=== PATIENT | female | born 1940 | race Caucasian/White ===

== ENCOUNTER 2018-02-12 05:44 | Inpatient (IN) | payer OTHER ==
[2018-02-12] MEDS ORDERED: SODIUM CHLORIDE 1,000 ML IV SCH (05:45)
--- NOTE | 2018-02-12 05:54 | PDOC ---
History of Present Illness - General Chief Complaint: CVA/TIA Stated Complaint: CVA Time Seen by Provider: 02/12/18 05:45 - History of Present Illness Initial Comments: 02/12/18 06:14 The patient is a 77 year old female with a history of HTN who presents for evaluation of a possible stroke from home. The patient is accompanied by family who assist in providing the history. They note that the patient went to sleep at approximately 1 am this morning and awoke at 4 am complaining some some left sided weakness. They note progressively worsening symptoms with worsening left sided weakness, slurring speech, and urinary incontinence prompting her presentation to the ED at approximately 5:30 am. The patient otherwise denies headache, fevers, chills, SOB, chest pain, numbness, tingling, vision changes, or changes with bowel movements or pain with urination. tPA Exclusion checklist 3-4.5h - Time Elapsed Date last known well: 02/12/18 Time last known well: 01:00 Elaspsed time: 1 Day(s) and 5 Hour(s) and 30 Minutes - Thrombolytic Therapy Candidate Is patient eligible for thrombolytic therapy: No - Exclusion Criteria 3-4.5 hr SBP greater than 185 or DBP greater than 110mmHg despite tx: Yes - Ineligibility reason(s) Reasons No tPA given: Outside of window - delayed arrival, See reason(s) noted above NIH Stroke Scale - Last Known Well Date/Time & Onset Date Last Known Well: 02/12/18 Time Last Known Well: 01:00 - Initial Evaluation Level of consciousness: Alert Ask patient the month and their age: Answers both correctly Ask patient to open & close eyes; make fist and let go: Obeys both correctly Best gaze (horizontal eye movement): Normal Visual field testing: No visual field loss Facial paresis (Show teeth/raise eyebrows/close eyes tight): Partial paralysis ( total or near paralysis of lower face) Motor Function: Left Arm: Some effort against gravity Motor Function: Right Arm: Normal (extends arm 90 (or 45) degrees for 10 seconds without drift Motor Function: Left Leg: Some effort against gravity Motor Function: Right Leg: Normal (extends leg 30 degrees for 5 seconds without drift) Limb Ataxia: Present in one limb Sensory(Use pinprick test arms,legs,trunk,face/side to side): Normal Best language (Describe picture, name items, read sentences): No Aphasia Dysarthria (read several words): Mild to moderate slurring of words Extinction and Inattention: No abnormality - Total Score NIH Stroke Scale Score: 8 Past History - Past Medical History Allergies/Adverse Reactions: Allergies Allergy/AdvReac Type Severity Reaction Status Date / Time No Known Allergies Allergy Verified 02/12/18 05:52 Home Medications: Ambulatory Orders Enalapril Maleate [Vasotec] 10 mg PO DAILY 02/12/18 - Suicide/Smoking/Psychosocial Hx Smoking History: Never smoked Have you smoked in the past 12 months: No Information on smoking cessation initiated: No Hx Alcohol Use: No Drug/Substance Use Hx: No Review of Systems - Review of Systems Comments:: 02/12/18 06:17 Constitutional: No fevers, chills, fatigue, malaise HEENT: No Rhinorrhea, nasal congestion, visual changes Cardiovascular: No chest pain, syncope, palpitations, lightheadedness Respiratory: No Cough, SOB, Hemoptysis, Gastrointestinal: No Abdominal pain, Nausea, Vomiting, Constipation, Diarrhea, Melena Genitourinary: No Dysuria, Frequency, Urgency, Hesitancy, Hematuria, Flank pain Musculoskeletal: No Myalgia, arthralgia Skin: No rashes, itching, bruising, pallor Neurologic: Left sided weakness. Slurred Speech. No Headache, Dizziness, Numbness, or Tingling Psychiatric: No Hallucinations. No SI or HI *Physical Exam - Vital Signs Last Vital Signs Temp Pulse Resp BP Pulse Ox 97.7 F 82 202/101 H 99 02/12/18 05:44 02/12/18 05:44 02/12/18 05:44 02/12/18 05:44 - Physical Exam Comments: 02/12/18 06:17 General Appearance: Nourished. No Apparent Distress HEENT: EOMI, NARCISA. No Pharyngeal Erythema, Tonsillar Exudate, Tonsillar Erythema Neck: No Cervical Lymphadenopathy Respiratory/Chest: Lungs Clear, Normal Breath Sounds. No Crackles, Rales, Rhonchi, Wheezing Cardiovascular: Regular Rhythm, Regular Rate. No Murmur, Gallops, Rubs Gastrointestinal/Abdominal: Normal Bowel Sounds, Soft. No Guarding, Rebound, Tenderness Musculoskeletal: No CVA Tenderness Extremity: Normal Capillary Refill Integumentary: Normal Color, Dry, Warm Neurologic: Left sided lower facial droop noted on exam, Fully Oriented, Alert, Normal Mood/Affect, Normal Response, Motor Strength 2/5 on the left. Motor Strength 5/5 on the right. Normal Finger to Nose and Heel to Odom, No visual field deficits Moderate Sedation - Procedure Monitoring Vital Signs: Procedure Monitoring Vital Signs Temperature 97.7 F 02/12/18 05:44 Pulse Rate 82 02/12/18 05:44 Respiratory Rate Blood Pressure 202/101 H 02/12/18 05:44 O2 Sat by Pulse Oximetry (%) 99 02/12/18 05:44 ED Treatment Course - LABORATORY CBC & Chemistry Diagram: 02/12/18 05:50 02/12/18 05:50 - RADIOLOGY Radiology Studies Ordered: Category Date Time Status HEAD CT (STROKE) [CT] Stat CT Scan 02/12/18 05:44 Taken CHEST X-RAY PORTABLE* [RAD] Stat Radiology 02/12/18 05:45 Ordered Medical Decision Making - Medical Decision Making 02/12/18 06:22 The patient is a 77 year old female with a history of HTN who presents for evaluation of a possible stroke from home. Differential includes but is not limited to: CVA, TIA, UTI, Infectious, Metabolic Derangement. Given the patient 's presenting symptoms, we are concerned for a CVA however the patient does not qualify for TPA given she is outside the window and her elevated blood pressure. Head CT was obtained and did not demonstrate any acute infarct correlating with the a patient's symptoms as preliminarily read by our administrative assistant front desk radiologist. We will obtain a cbc, cmp, troponin, ua, lipid profile, ekg, chest plain film to evaluate further. We will obtain a consult with neurology given our concern for CVA and the patient will require admission for further work up and monitoring. 02/12/18 06:55 CBC, cmp, troponin, are unremarkable. Chest plain film is unremarkable. Patient signed out to the day team pending admission. *DC/Admit/Observation/Transfer Diagnosis at time of Disposition: Cerebrovascular accident (CVA) - Discharge Dispostion Condition at time of disposition: Guarded - Referrals - Patient Instructions - Post Discharge Activity
[2018-02-12 05:55] VITALS: BMI 18.3
[2018-02-12 05:58] LABS: BASO % 1.2 % (0-2.0); EOS % 0.9 % (0-4.5); HEMATOCRIT 44.8 % (32.4-45.2); HEMOGLOBIN 14.7 GM/dL (10.7-15.3); LYMPH % 21.7 % (8-40); MCH 29.1 pg (25.7-33.7); MCHC 32.7 g/dl (32.0-36.0); MEAN CELL VOLUME 88.9 fl (80-96); MEAN PLT VOLUME 10.4 fl (7.5-11.1); MONO % 8.6 % (3.8-10.2); NEUT % 67.6 % (42.8-82.8); PLATELET COUNT 174 K/MM3 (134-434); RBC 5.04 M/mm3 (3.60-5.2); RDW 14.5 % (11.6-15.6); WHITE BLOOD COUNT 6.4 K/mm3 (4.0-10.0)
[2018-02-12 06:11] LABS: INR 0.97 (0.83-1.09); PROTHROMBIN TIME (PATIENT) 11.4 SEC (9.7-13.0)
--- NOTE | 2018-02-12 06:11 | PDOC ---
Attending Attestation - Resident Resident Name: Steven Barbosa - ED Attending Attestation I have performed the following: I have examined & evaluated the patient, The case was reviewed & discussed with the resident, I agree w/resident's findings & plan, Exceptions are as noted - HPI HPI: 02/12/18 06:05 77 F with h/o HTN presents to ED with new onset L sided weakness and numbness, as well as slurred speech. Per family, pt went to bed at 1am tonight in her [facility]. Pt reportedly woke up at 3:30 with a sensation that her L hand was numb. When pt went to the bathroom, she was found to be draging her L leg. Family also notes that pt was slurring her speech. - Physicial Exam PE: 02/12/18 06:12 "GENERAL: Awake, alert, and fully oriented, in no acute distress. HEAD: No signs of trauma EYES: PERRLA, EOMI, sclera anicteric, conjunctiva clear ENT: Auricles normal inspection, hearing grossly normal, nares patent, oropharynx clear without exudates. Moist mucosa NECK: Nontender, no stepoffs, Normal ROM, supple, no lymphadenopathy, JVD, or masses LUNGS: Breath sounds equal, clear to auscultation bilaterally. No wheezes, and no crackles HEART: Regular rate and rhythm, normal S1 and S2, no murmurs, rubs or gallops ABDOMEN: Soft, nontender, normoactive bowel sounds. No guarding, no rebound. No masses EXTREMITIES: Normal range of motion, no edema. No clubbing or cyanosis. No cords, erythema, or tenderness NEUROLOGICAL: + L facial droop, + L sided weakness and numbness, RUE and RLE with 5/5 strength and sensation SKIN: Warm, Dry, normal turgor, no rashes or lesions noted. - Critical Care Time Total Critical Care Time: 60 Critical Care Statement: The care of this patient involved high complexity decision making to prevent further life threatening deterioration of the patient 's condition and/or to evaluate & treat vital organ system(s) failure or risk of failure. - Medical Decision Making 02/12/18 06:13 77 F with h/o HTN presenting to ED with L sided weakness. Pt's LKN was 1am, putting her outside of window for tPA. NIHSS 9. 02/12/18 06:15 CT with no bleed Dr. Valle, neuro legal receptionist, consulted, awaiting callback 02/12/18 06:37 Labs wnl Still awaiting callback Will order MRI and admit to hospitalist NIH Stroke Scale - Last Known Well Date/Time & Onset Date Last Known Well: 02/12/18 Time Last Known Well: 01:00 - Initial Evaluation Level of consciousness: Alert Ask patient the month and their age: Answers both correctly Ask patient to open & close eyes; make fist and let go: Obeys both correctly Best gaze (horizontal eye movement): Normal Visual field testing: No visual field loss Facial paresis (Show teeth/raise eyebrows/close eyes tight): Partial paralysis ( total or near paralysis of lower face) Motor Function: Left Arm: Some effort against gravity Motor Function: Right Arm: Normal (extends arm 90 (or 45) degrees for 10 seconds without drift Motor Function: Left Leg: Some effort against gravity Motor Function: Right Leg: Normal (extends leg 30 degrees for 5 seconds without drift) Limb Ataxia: Present in one limb Sensory(Use pinprick test arms,legs,trunk,face/side to side): Normal Best language (Describe picture, name items, read sentences): No Aphasia Dysarthria (read several words): Mild to moderate slurring of words Extinction and Inattention: No abnormality - Total Score NIH Stroke Scale Score: 8
[2018-02-12 06:23] LABS: ALBUMIN 4.2 g/dl (3.4-5.0); ALK PHOS 94 U/L (45-117); ANION GAP 7 MMOL/L (8-16); BILIRUBIN,TOTAL 0.4 mg/dL (0.2-1); BLOOD UREA NITROGEN 21 mg/dL (7-18); CALCIUM 9.2 mg/dL (8.5-10.1); CHLORIDE 107 mmol/L (98-107); CHOLESTEROL 261 mg/dL (50-200); CO2 24 mmol/L (21-32); CREATININE 1.2 mg/dL (0.55-1.3); GLUCOSE,RANDOM 110 mg/dL (74-106); HDL CHOLESTEROL 81 mg/dL (40-60); POTASSIUM 4.2 mmol/L (3.5-5.1); SGOT/AST 31 U/L (15-37); SGPT/ALT 17 U/L (13-61); SODIUM 139 mmol/L (136-145); TOT PROT 8.2 g/dl (6.4-8.2); TRIGLYCERIDES 98 mg/dL (0-150)
--- NOTE | 2018-02-12 07:26 | PDOC ---
*Physical Exam - Vital Signs Last Vital Signs Temp Pulse Resp BP Pulse Ox 98.9 F 80 25 H 219/136 H 100 02/12/18 06:11 02/12/18 06:11 02/12/18 06:11 02/12/18 06:11 02/12/18 06:11 ED Treatment Course - LABORATORY CBC & Chemistry Diagram: 02/12/18 05:50 02/12/18 05:50 - ADDITIONAL ORDERS Additional order review: Laboratory Results 02/12/18 02/12/18 05:50 05:50 PT with INR 11.40 INR 0.97 Sodium 139 Potassium 4.2 Chloride 107 Carbon Dioxide 24 Anion Gap 7 L BUN 21 H Creatinine 1.2 Creat Clearance w eGFR 43.80 Random Glucose 110 H Calcium 9.2 Total Bilirubin 0.4 AST 31 ALT 17 Alkaline Phosphatase 94 Creatine Kinase 153 Troponin I < 0.02 Total Protein 8.2 Albumin 4.2 Triglycerides 98 Cholesterol 261 H Total LDL Cholesterol 148 H HDL Cholesterol 81 H 02/12/18 05:50 RBC 5.04 MCV 88.9 MCHC 32.7 RDW 14.5 MPV 10.4 Neutrophils % 67.6 Lymphocytes % 21.7 Monocytes % 8.6 Eosinophils % 0.9 Basophils % 1.2 Medical Decision Making - Medical Decision Making Pt was signed out to me by resident Dr. Barbosa, who explained the presentation , ED course, any pending results, and needed interventions. Pending results include admission and UA. Pt is currently stable/guarded and is lying comfortably. Pending admission and consult call from Dr. Valle. Consult orders have been placed. 02/12/18 07:22 No call received from Dr. Valle at 8:00. Dr. Payne at bedside to see pt. Consult placed for Dr. Lira for neurology. Pt awaiting bed upstairs. Repeat BP 160/97. 02/12/18 08:00 B/l LE doppler order placed. Pt had recent flight from [place] and cramps in legs. 02/12/18 08:01 *DC/Admit/Observation/Transfer Diagnosis at time of Disposition: Cerebrovascular accident (CVA) Qualifiers: CVA mechanism: unspecified Qualified Code(s): I63.9 - Cerebral infarction, unspecified - Discharge Dispostion Condition at time of disposition: Guarded Decision to Admit order: Yes - Referrals - Patient Instructions - Post Discharge Activity
--- NOTE | 2018-02-12 07:53 | PDOC ---
*Physical Exam - Vital Signs Last Vital Signs Temp Pulse Resp BP Pulse Ox 98.9 F 68 16 160/97 100 02/12/18 06:11 02/12/18 07:38 02/12/18 07:38 02/12/18 07:38 02/12/18 07:38 - Physical Exam General Appearance: Yes: Nourished Neck: positive: Trachea midline Respiratory/Chest: positive: Lungs Clear, Normal Breath Sounds Cardiovascular: positive: Regular Rhythm, Regular Rate, S1, S2 Musculoskeletal: positive: Normal Inspection Extremity: positive: Normal Capillary Refill Neurologic: positive: Fully Oriented, Alert, Normal Mood/Affect, Other (left arm no movement against gravity, left leg moves, not against gravity, right uper and lower normal strength. right facial droop.) Heart Score/ECG Review #1 General ECG Interpretation: Sinus Rhythm, Normal Rate (76), Normal Intervals, No acute ischemic changes ED Treatment Course - LABORATORY CBC & Chemistry Diagram: 02/12/18 05:50 02/12/18 05:50 - ADDITIONAL ORDERS Additional order review: Laboratory Results 02/12/18 02/12/18 02/12/18 05:50 05:50 05:50 PT with INR 11.40 INR 0.97 Sodium 139 Potassium 4.2 Chloride 107 Carbon Dioxide 24 Anion Gap 7 L BUN 21 H Creatinine 1.2 Creat Clearance w eGFR 43.80 Random Glucose 110 H Calcium 9.2 Total Bilirubin 0.4 AST 31 ALT 17 Alkaline Phosphatase 94 Creatine Kinase 153 Creatine Kinase Index 1.3 CK-MB (CK-2) 2.0 Troponin I < 0.02 Total Protein 8.2 Albumin 4.2 Triglycerides 98 Cholesterol 261 H Total LDL Cholesterol 148 H HDL Cholesterol 81 H Blood Type B POSITIVE Antibody Screen Negative 02/12/18 05:50 RBC 5.04 MCV 88.9 MCHC 32.7 RDW 14.5 MPV 10.4 Neutrophils % 67.6 Lymphocytes % 21.7 Monocytes % 8.6 Eosinophils % 0.9 Basophils % 1.2 Medical Decision Making - Medical Decision Making 02/12/18 07:51 77 yo F h/o DM, htn here with sudden onset left sided weakness and slurred speech. here with family states last normal 1 am , awoke at 3 am to go to bathroom was dragging her left leg, noted facial droop. no headache. no other complaints. 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 EKG NSR 76 bpm bp improved was 219/ 100 initially, now 160/ 97. d/w dr garsia, will be admitted. updated family at bedside. 02/12/18 07:54 *DC/Admit/Observation/Transfer Diagnosis at time of Disposition: Cerebrovascular accident (CVA) Qualifiers: CVA mechanism: unspecified Qualified Code(s): I63.9 - Cerebral infarction, unspecified - Discharge Dispostion Condition at time of disposition: Guarded - Referrals - Patient Instructions - Post Discharge Activity
[2018-02-12] MEDS ORDERED: ACETAMINOPHEN 325 MG TABLET (FP) PO PRN (08:06)
[2018-02-12] MEDS ORDERED: LABETALOL HCL 5 MG/1 ML (100MG/20 ML VIAL) IVPUSH PRN (08:10)
[2018-02-12] MEDS ORDERED: ASPIRIN 325 MG TABLET PO ONE (08:16)
[2018-02-12] MEDS ORDERED: ASPIRIN 325 MG TABLET ONE (08:17)
--- NOTE | 2018-02-12 08:25 | HP ---
Admitting History and Physical - Primary Care Physician PCP: None - Admission Chief Complaint: I feel weak History of Present Illness: Ms Rafa Kirkland is a very pleasant 77 year old female who comes in with concern for stroke. She recently flew from [place] 2 days prior for the of her son in law. Last night she was "not feeling well" but did not tell anybody. She went to bed at 1:30 and woke up at 3:30 with weakness. She says it affected her entire left side. She could not move her L arm and L leg. She had to use the bathroom and was being assisted, and they noted that she was unable to use her L side to walk. They also noted L sided facial droop and slight slurring of speech. Because of this they brought her in. Aside from this she complains of minimal swelling in both legs and spasmodic pain in her left leg. She denies fevers, chills, lightheadedness, dizziness, passing out, chest pain or pressure , palpitations, shortness of breath, coughing, abdominal pain, nausea, vomiting , diarrhea, constipation, difficulty or pain on urination, or loss of sensation. She notes tingling with the weakness on her left side. Currently the symptoms are still present. Patient is [place] speaking, family members provide translation. Of note patient is supposed to be taking enalapril, however has not been compliant with it recently. History Source: Patient Limitations to Obtaining History: No Limitations - Past Medical History Cardiovascular: Yes: HTN - Past Surgical History Past Surgical History: Yes: Cataract Removal - Smoking History Smoking history: Never smoked Have you smoked in the past 12 months: No - Alcohol/Substance Use Hx Alcohol Use: No History of Substance Use: reports: None - Social History Usual Living Arrangement: Yes: Alone ADL: Independent History of Recent Travel: Yes Home Medications - Allergies Allergies/Adverse Reactions: Allergies Allergy/AdvReac Type Severity Reaction Status Date / Time No Known Allergies Allergy Verified 02/12/18 05:52 - Home Medications Home Medications: Ambulatory Orders Enalapril Maleate [Vasotec] 10 mg PO DAILY 02/12/18 Family Disease History - Family Disease History Family Disease History: Other: Brother (acute CVA), Son (sleep apnea), Daughter (rheumatoid arthritis) Review of Systems Findings/Remarks: Full review of systems obtained, as per HPI and otherwise negative. Physical Examination Vital Signs: Vital Signs Temperature 37.2 C 02/12/18 06:11 Pulse Rate 68 02/12/18 07:38 Respiratory Rate 16 02/12/18 07:38 Blood Pressure 160/97 02/12/18 07:38 O2 Sat by Pulse Oximetry (%) 100 02/12/18 07:38 Constitutional: Yes: No Distress, Calm, Thin Eyes: Yes: Conjunctiva Clear, EOM Intact, PERRL HENT: Yes: Atraumatic, Normocephalic, Other (L mouth droop) Cardiovascular: Yes: Regular Rate and Rhythm. No: Gallop, Murmur, Rub Respiratory: Yes: Regular, CTA Bilaterally. No: Rales, Rhonchi, Wheezes Gastrointestinal: Yes: Normal Bowel Sounds, Soft. No: Distention, Tenderness Extremities: Yes: WNL Edema: No Neurological: Yes: Facial Droop (L side), Weakness ...Motor Strength: LUE (1/5), LLE (1/5) Labs: CBC, BMP 02/12/18 05:50 02/12/18 05:50 Problem List - Problems (1) Cerebrovascular accident (CVA) Assessment/Plan: -symptoms c/w acute CVA -however unusual that has L sided facial droop with left deficit -still acute CVA until proven otherwise -aspirin given in the ED -will continue ASA 81mg daily since naive to this -blood pressure control with enalapril and prn labetalol -npo currently -PT and ST consult -ECHO and carotid ultrasound -MRI -neurology consult Code(s): I63.9 - CEREBRAL INFARCTION, UNSPECIFIED Qualifiers: CVA mechanism: unspecified Qualified Code(s): I63.9 - Cerebral infarction, unspecified (2) HTN (hypertension) Assessment/Plan: -uncontrolled, but not taking enalapril as prescribed -will restart enalapril -labetalol prn -blood pressure control Code(s): I10 - ESSENTIAL (PRIMARY) HYPERTENSION (3) HLD (hyperlipidemia) Assessment/Plan: -CT showing old stroke -LDL should be below 70, not at target -will start lipitor 20mg, but will d/w neurology if should be full strength Code(s): E78.5 - HYPERLIPIDEMIA, UNSPECIFIED (4) Edema Assessment/Plan: -minimal edema with spasm of LLE -will check venous duplex dopplers for DVT -will check d-dimer as well -no signs of PE at the time so will hold on CT scan PE protocol until above tests result Code(s): R60.9 - EDEMA, UNSPECIFIED Qualifiers: Edema type: localized Qualified Code(s): R60.0 - Localized edema
[2018-02-12 08:28] LABS: URINE APPEARANCE CLEAR; URINE BILIRUBIN NEGATIVE (<2.0 mg/dL); URINE COLOR STRAW; URINE GLUCOSE (UA) NEGATIVE (NEGATIVE); URINE KETONE NEGATIVE (NEGATIVE); URINE LEUK ESTERASE NEGATIVE (NEGATIVE); URINE NITRITE NEGATIVE (NEGATIVE); URINE PROTEIN 2+ (NEGATIVE); URINE UROBILINOGEN NEGATIVE mg/dL (0.2-1.0)
[2018-02-12 08:40] LABS: URINE BACTERIA RARE /hpf (NONE SEEN)
[2018-02-12] MEDS ORDERED: ENALAPRIL MALEATE 5 MG TABLET (FP) ONE (09:05)
[2018-02-12] MEDS ORDERED: ENOXAPARIN NA (PORCINE) 40 MG/0.4 ML DISP.SYRIN SQ ONE (09:06)
[2018-02-12] MEDS: ENALAPRIL MALEATE 10 MG TABLET (FP) PO SCH (09:06)
[2018-02-12] MEDS: ENOXAPARIN NA (PORCINE) 40 MG/0.4 ML DISP.SYRIN SQ SCH (09:06)
--- NOTE | 2018-02-12 09:48 | CONSULT ---
Consult - text type - Consultation Consultation Note: Neurology History of Present Illness: 77 year old female who resented with reported weakness and slurred speech. Per notes, she recently flew from [place] 2 days prior for the of her son in law. Night prior to admission she was "not feeling well" but did not tell anybody. She went to bed at 1:30 and woke up at 3:30 with weakness. She stated it affected her entire left side. She could not move her L arm and L leg. She had to use the bathroom and was being assisted, and they noted that she was unable to use her L side to walk. They also noted L sided facial droop and slight slurring of speech. Because of this they brought her in. Aside from this she complains of minimal swelling in both legs and spasmodic pain in her left leg. She denied fevers, chills, lightheadedness, dizziness, passing out, chest pain or pressure, palpitations, shortness of breath, coughing, abdominal pain, nausea, vomiting, diarrhea, constipation, difficulty or pain on urination , or loss of sensation. She notes tingling with the weakness on her left side. CT had completed an emergency department did not show any acute changes. She was admitted for stroke workup and I was asked by Dr. Payne to consult. agree with stroke workup and MRI brain ordered, continue deficits on exam during my evaluation this morning in the ER. According to her son at bedside, she does not take daily aspirin at home. History Source: Patient Limitations to Obtaining History: No Limitations - Past Medical History Cardiovascular: Yes: HTN - Past Surgical History Past Surgical History: Yes: Cataract Removal - Smoking History Smoking history: Never smoked Have you smoked in the past 12 months: No - Alcohol/Substance Use Hx Alcohol Use: No History of Substance Use: reports: None - Social History Usual Living Arrangement: Yes: Alone ADL: Independent History of Recent Travel: Yes Home Medications - Allergies Allergies/Adverse Reactions: Allergies Allergy/AdvReac Type Severity Reaction Status Date / Time No Known Allergies Allergy Verified 02/12/18 05:52 - Home Medications Home Medications: Ambulatory Orders Enalapril Maleate [Vasotec] 10 mg PO DAILY 02/12/18 Family Disease History - Family Disease History Family Disease History: Other: Brother (acute CVA), Son (sleep apnea), Daughter (rheumatoid arthritis) Review of Systems Findings/Remarks: Full review of systems obtained, as per HPI and otherwise negative. Physical Examination Vital Signs: Vital Signs Temperature 37.2 C 02/12/18 06:11 Pulse Rate 68 02/12/18 07:38 Respiratory Rate 16 02/12/18 07:38 Blood Pressure 160/97 02/12/18 07:38 O2 Sat by Pulse Oximetry (%) 100 02/12/18 07:38 Constitutional: Yes: No Distress, Calm, Thin Eyes: Yes: Conjunctiva Clear, EOM Intact, PERRL HENT: Yes: Atraumatic, Normocephalic, Other (L mouth droop) Cardiovascular: Yes: Regular Rate and Rhythm. No: Gallop, Murmur, Rub Respiratory: Yes: Regular, CTA Bilaterally. No: Rales, Rhonchi, Wheezes Gastrointestinal: Yes: Normal Bowel Sounds, Soft. No: Distention, Tenderness Extremities: Yes: WNL Edema: No Neurological: left facial droop,slurred speech, LUE 2/5, LLE 1/5, RUE and RLE 5- /5, sensory intact, finger to nose intact CBCD WBC 6.4 K/mm3 (4.0-10.0) 02/12/18 05:50 RBC 5.04 M/mm3 (3.60-5.2) 02/12/18 05:50 Hgb 14.7 GM/dL (10.7-15.3) 02/12/18 05:50 Hct 44.8 % (32.4-45.2) 02/12/18 05:50 MCV 88.9 fl (80-96) 02/12/18 05:50 MCHC 32.7 g/dl (32.0-36.0) 02/12/18 05:50 RDW 14.5 % (11.6-15.6) 02/12/18 05:50 Plt Count 174 K/MM3 (134-434) 02/12/18 05:50 MPV 10.4 fl (7.5-11.1) 02/12/18 05:50 CMP Sodium 139 mmol/L (136-145) 02/12/18 05:50 Potassium 4.2 mmol/L (3.5-5.1) 02/12/18 05:50 Chloride 107 mmol/L (98-107) 02/12/18 05:50 Carbon Dioxide 24 mmol/L (21-32) 02/12/18 05:50 Anion Gap 7 MMOL/L (8-16) L 02/12/18 05:50 BUN 21 mg/dL (7-18) H 02/12/18 05:50 Creatinine 1.2 mg/dL (0.55-1.3) 02/12/18 05:50 Creat Clearance w eGFR 43.80 (>60) 02/12/18 05:50 Random Glucose 110 mg/dL (74-106) H 02/12/18 05:50 Calcium 9.2 mg/dL (8.5-10.1) 02/12/18 05:50 Total Bilirubin 0.4 mg/dL (0.2-1) 02/12/18 05:50 AST 31 U/L (15-37) 02/12/18 05:50 ALT 17 U/L (13-61) 02/12/18 05:50 Alkaline Phosphatase 94 U/L (45-117) 02/12/18 05:50 Total Protein 8.2 g/dl (6.4-8.2) 02/12/18 05:50 Albumin 4.2 g/dl (3.4-5.0) 02/12/18 05:50 CARDIAC ENZYMES Creatine Kinase 153 IU/L (26-192) 02/12/18 05:50 Troponin I < 0.02 ng/ml (0.00-0.05) 02/12/18 05:50 CT head reviewed Plan 77 year old female who resented with reported weakness and slurred speech. Per notes, she recently flew from [place] 2 days prior for the of her son in law. Night prior to admission she was "not feeling well" but did not tell anybody. She went to bed at 1:30 and woke up at 3:30 with weakness. She stated it affected her entire left side. She could not move her L arm and L leg. CT had completed an emergency department did not show any acute changes. She was admitted for stroke workup and I was asked by Dr. Payne to consult. Agree with stroke workup and MRI brain ordered carotid Dopplers Echo Initiate aspirin 81 mg daily, compliance recommended Monitor blood pressure, allow up to 160/90 for now speech and swallow eval LDL 148, increased Lipitor to 40 mg from 20 mg physical therapy as tolerated Fall precautions DVT prophylaxis recommended
[2018-02-12] MEDS ORDERED: ASPIRIN COATED 81 MG TABLET.EC PO SCH (10:00)
--- NOTE | 2018-02-12 11:30 | CONSULT ---
Admitting History and Physical - Primary Care Physician PCP: cAe Payne - Admission History of Present Illness: Per EMR: 77 year old female who resented with reported weakness and slurred speech. Per notes, she recently flew from [place] 2 days prior for the of her son in law. Night prior to admission she was "not feeling well" but did not tell anybody. She went to bed at 1:30 and woke up at 3:30 with weakness. She stated it affected her entire left side. She could not move her L arm and L leg. She had to use the bathroom and was being assisted, and they noted that she was unable to use her L side to walk. They also noted L sided facial droop and slight slurring of speech. Because of this they brought her in. CT head (-) acute stroke Pending MRI History Source: Patient, Family Member (Pt's son present, who served and financial secretary. He was tearful, overwhelmed by many recent deaths in family. Nursing and SW aware.), Medical Record - Past Medical History Cardiovascular: Yes: HTN - Past Surgical History Past Surgical History: Yes: Cataract Removal - Smoking History Smoking history: Never smoked Have you smoked in the past 12 months: No - Alcohol/Substance Use Hx Alcohol Use: No History of Substance Use: reports: None - Social History ADL: Independent History of Recent Travel: Yes History - Admission Reason For Visit: CVA - Diagnostics X-ray: Report Reviewed CT Scan: Report Reviewed MRI: Pending - General Mental Status: Alert and Oriented, Awake and Alert, Able to Follow Commands Attention: Intact Ability to Follow Directions: Excellent Head/Neck Control: WFL - Hearing Hearing: Functional Speech Evaluation - Communication Primary Language: TELUGU Communication: Yes: Within Normal Limits, Dysarthria Oral Expression Ability: Yes: No Impairment - Speech Production Able to Make Needs Known: Yes: Mildly Impaired - Speech Characteristics Voice Loudness: Mildly Soft/Quiet Voice Pitch: Yes: Normal Voice Phonatory-based Quality: Yes: Normal Speech Clarity: < 100% Nasal Resonance: Normal Articulation: Yes: Imprecise (mild) - Language/Auditory Comprehension Follows: Yes: 2 Stage Simple Commands Observation: Able to respond to yes/no queries: Yes, Yes/No Confusion: No, Comprehends Conversational Speech: Yes - Language/Verbal Expression Able to Respond to Simple Queries: Yes: WNL Able to Communicate Wants and Needs: Yes: WNL Functional Communication Status: Yes: WNL - Memory/Perception custodial Memory: Yes: WNL Short Term Memory: Yes: WNL - Swallow Evaluation/Bedside Assessment Current Nutritional Intake: NPO Oral Secretions: Yes: WFL Dentition: Yes: Adequate Facial Symmetry at Rest: Facial Droop Left Facial Symmetry on Retraction: Facial Droop Left Sensation: Reduced Left Jaw Position: Closed at Rest Pucker Lips: Droops Left Smile: Droops Left Lingual Movement: Symmetric Lingual Speed of Movement: Reduced Lingual Movement Strgth Against Opposition: Reduced Lingual Movement Characteristics: Normal Velopharyngeal Movement: Normal Laryngeal Movement: Labored,delay initiation Rate of Intake: WFL Bolus Size: WFL Labial Seal: WFL Chewing: Impaired (labored. Reports reduced sensation on left makes chewing more difficult.) Oral Prep Time: Increased A-P Transit: WFL Pocketing: Present Left Timing of Swallow: Delayed Coughing/Throat Clear: Yes (occasional) Change in Voice: No Recommendations - Speech Evaluation, Impression/Plan Impression: Mild dysarthria/dysarthria/ Reduced sensation on left reported with increased aspiration risk. - Disposition Discharge to: To be Determined - Dysphagia Impressions/Plan Swallowing Skills: Impaired Dysphagia Impressions: Mild Impairment *Silent aspiration: cannot be R/O at bedside Dysphagia Treatment Plan: Small Bites, Chin Tuck/Down, Facilitative Feeding, 1/ 2 tsp. at a time, Elevate HOB during feed Recommendations: Modified Barium Swallow (if cough, congestion, fever) - Recommendations Diet Consistency: Dysphagia Minced Medication Administration: Crushed with applesauce Liquids: [place] Thick
--- NOTE | 2018-02-12 15:30 | ECHO ---
Name: MAICOL KNOX Exam:Adult Echocardiogram Study Date: 02/12/2018 12:58 PM Age: 77 yrs Reason For Study: ACUTE CVA Height: 62 in Weight: 100 lb BSA: 1.4 m2 MMode/2D Measurements & Calculations IVSd: 1.0 cm Ao root diam: 2.4 cm LVIDd: 3.9 cm ACS: 1.9 cm LVIDs: 3.0 cm LVPWd: 1.00 cm EDV(Teich): 65.7 ml LVOT diam: 1.9 cm ESV(Teich): 36.0 ml Doppler Measurements & Calculations MV V2 max: 644.1 cm/sec TV V2 max: 109.9 cm/sec MV max P.0 mmHg TV max P.4 mmHg MV V2 mean: 455.9 cm/sec MV mean P.1 mmHg MV V2 VTI: 203.9 cm PI end-d vinayak: 132.5 cm/sec Med Peak E' Vinayak: 4.2 cm/sec Lat Peak E' Vinayak: 7.2 cm/sec Left Ventricle The left ventricle is normal in size. Left ventricular systolic function is normal. LVEF = 60%. E/A r eversal consistent with but not diagnostic of poor LV compliance. Right Ventricle The right ventricle is normal in size and function. Atria Normal left and right atrial size and function. Mitral Valve There is mild mitral annular calcification. Posterior leaflet is calcified and less mobile. The abbey l regurgitant jet is eccentrically directed. Eccetric mitral regurgitation, likely moderate severity. Tricuspid Valve The tricuspid valve is not well visualized, but is grossly normal. There is trace tricuspid regurgita tion. Right ventricular systolic pressure is normal. Aortic Valve There is mild to moderate aortic sclerosis.;. Trace aortic regurgitation. Pulmonic Valve The pulmonic valve is not well seen, but is grossly normal. Great Vessels The aortic root is normal size. Pericardium/Pleura There is no pericardial effusion. Interpretation Summary The left ventricle is normal in size. Left ventricular systolic function is normal. LVEF = 60%. The right ventricle is normal in size and function. Normal left and right atrial size and function. There is mild to moderate aortic sclerosis.; Trace aortic regurgitation. There is mild mitral annular calcification. Posterior leaflet is calcified and less mobile. Eccetric mitral regurgitation, likely moderate severity. MD Aleksandra Almanza 02/12/2018 03:30 PM
--- NOTE | 2018-02-12 16:25 | EKG ---
Test Reason : Blood Pressure : / mmHG Vent. Rate : 076 BPM Atrial Rate : 076 BPM P-R Int : 302 ms QRS Dur : 074 ms QT Int : 370 ms P-R-T Axes : 109 024 022 degrees QTc Int : 416 ms SINUS RHYTHM WITH 1ST DEGREE A-V BLOCK OTHERWISE NORMAL ECG Confirmed by MD ÁNGEL, KEKE ([id number]) on 02/12/2018 4:24:50 PM Referred By: Confirmed By:KEKE NEAL MD
[2018-02-12] MEDS ORDERED: ATORVASTATIN CA 20 MG TABLET (FP) PO SCH (22:00)
[2018-02-12] MEDS: ATORVASTATIN CA 40 MG TABLET (FP) PO SCH (22:01)
[2018-02-13 06:51] LABS: BASO % 0.4 % (0-2.0); EOS % 0.5 % (0-4.5); HEMATOCRIT 39.3 % (32.4-45.2); HEMOGLOBIN 13.8 GM/dL (10.7-15.3); LYMPH % 21.4 % (8-40); MCH 30.8 pg (25.7-33.7); MCHC 35.1 g/dl (32.0-36.0); MEAN CELL VOLUME 87.7 fl (80-96); MEAN PLT VOLUME 10.1 fl (7.5-11.1); MONO % 9.6 % (3.8-10.2); NEUT % 68.1 % (42.8-82.8); PLATELET COUNT 163 K/MM3 (134-434); RBC 4.48 M/mm3 (3.60-5.2); RDW 14.2 % (11.6-15.6); WHITE BLOOD COUNT 6.6 K/mm3 (4.0-10.0)
[2018-02-13 07:41] LABS: ALBUMIN 3.5 g/dl (3.4-5.0); ALK PHOS 62 U/L (45-117); ANION GAP 10 MMOL/L (8-16); BILIRUBIN,TOTAL 0.8 mg/dL (0.2-1); BLOOD UREA NITROGEN 16 mg/dL (7-18); CALCIUM 8.8 mg/dL (8.5-10.1); CHLORIDE 106 mmol/L (98-107); CO2 23 mmol/L (21-32); CREATININE 1.1 mg/dL (0.55-1.3); GLUCOSE,RANDOM 96 mg/dL (74-106); MAGNESIUM 2.1 mg/dL (1.8-2.4); POTASSIUM 4.1 mmol/L (3.5-5.1); SGOT/AST 27 U/L (15-37); SGPT/ALT 15 U/L (13-61); SODIUM 139 mmol/L (136-145)
--- NOTE | 2018-02-13 09:28 | PN ---
Progress Note (short form) - Note Progress Note: Neurology History of Present Illness: 77 year old female who resented with reported weakness and slurred speech. Per notes, she recently flew from [place] 2 days prior for the of her son in law. Night prior to admission she was "not feeling well" but did not tell anybody. She went to bed at 1:30 and woke up at 3:30 with weakness. She stated it affected her entire left side. She could not move her L arm and L leg. She had to use the bathroom and was being assisted, and they noted that she was unable to use her L side to walk. They also noted L sided facial droop and slight slurring of speech. Because of this they brought her in. Aside from this she complains of minimal swelling in both legs and spasmodic pain in her left leg. She denied fevers, chills, lightheadedness, dizziness, passing out, chest pain or pressure, palpitations, shortness of breath, coughing, abdominal pain, nausea, vomiting, diarrhea, constipation, difficulty or pain on urination , or loss of sensation. She notes tingling with the weakness on her left side. CT had completed an emergency department did not show any acute changes. MRI brain completed overnight and demonstrated R basal ganglia/ghosh radiata infarct. Patient put on ASA 81mg. Also on statin. Carotid reviewed and without HD significant stenosis but mild athero. Normal LV function and EF. Reviewed and discussed with patient. LUE and LLE improving strength both subjectively and objectively. Countinued encouragement provided. Active Medications Acetaminophen (Tylenol -) 650 mg PO Q4H PRN PRN Reason: FEVER Aspirin (Ecotrin -) 81 mg PO DAILY [facility] Atorvastatin Calcium (Lipitor -) 40 mg PO HS [facility] Last Admin: 02/12/18 22:01 Dose: 40 mg Enalapril Maleate (Vasotec -) 10 mg PO DAILY [facility] Last Admin: 02/12/18 09:06 Dose: 10 mg Enoxaparin Sodium (Lovenox -) 40 mg SQ DAILY [facility] Last Admin: 02/12/18 09:06 Dose: 40 mg Labetalol HCl (Normodyne Injection -) 10 mg IVPUSH Q6H PRN PRN Reason: HYPERTENSION Last Admin: 02/12/18 15:28 Dose: 10 mg Physical Examination Vital Signs: Vital Signs Period Temp Pulse Resp BP Sys/Mckenna Pulse Ox Last 24 Hr 97.6 F-98.4 F 61-78 18-20 118-192/64-113 98-100 Constitutional: Yes: No Distress, Calm, Thin Eyes: Yes: Conjunctiva Clear, EOM Intact, PERRL HENT: Yes: Atraumatic, Normocephalic, Other (L mouth droop) Cardiovascular: Yes: Regular Rate and Rhythm. No: Gallop, Murmur, Rub Respiratory: Yes: Regular, CTA Bilaterally. No: Rales, Rhonchi, Wheezes Gastrointestinal: Yes: Normal Bowel Sounds, Soft. No: Distention, Tenderness Extremities: Yes: WNL Edema: No Neurological: left facial droop,slurred speech, LUE 3+/5, LLE 3-/5, RUE and RLE 5-/5, sensory intact, finger to nose intact CBCD WBC 6.6 K/mm3 (4.0-10.0) 02/13/18 05:30 RBC 4.48 M/mm3 (3.60-5.2) 02/13/18 05:30 Hgb 13.8 GM/dL (10.7-15.3) 02/13/18 05:30 Hct 39.3 % (32.4-45.2) 02/13/18 05:30 MCV 87.7 fl (80-96) 02/13/18 05:30 MCHC 35.1 g/dl (32.0-36.0) 02/13/18 05:30 RDW 14.2 % (11.6-15.6) 02/13/18 05:30 Plt Count 163 K/MM3 (134-434) 02/13/18 05:30 MPV 10.1 fl (7.5-11.1) 02/13/18 05:30 CMP Sodium 139 mmol/L (136-145) 02/13/18 06:00 Potassium 4.1 mmol/L (3.5-5.1) 02/13/18 06:00 Chloride 106 mmol/L (98-107) 02/13/18 06:00 Carbon Dioxide 23 mmol/L (21-32) 02/13/18 06:00 Anion Gap 10 MMOL/L (8-16) 02/13/18 06:00 BUN 16 mg/dL (7-18) 02/13/18 06:00 Creatinine 1.1 mg/dL (0.55-1.3) 02/13/18 06:00 Creat Clearance w eGFR 48.42 (>60) 02/13/18 06:00 Random Glucose 96 mg/dL (74-106) 02/13/18 06:00 Calcium 8.8 mg/dL (8.5-10.1) 02/13/18 06:00 Total Bilirubin 0.8 mg/dL (0.2-1) 02/13/18 06:00 AST 27 U/L (15-37) 02/13/18 06:00 ALT 15 U/L (13-61) 02/13/18 06:00 Alkaline Phosphatase 62 U/L (45-117) 02/13/18 06:00 Total Protein 7.0 g/dl (6.4-8.2) 02/13/18 06:00 Albumin 3.5 g/dl (3.4-5.0) 02/13/18 06:00 CARDIAC ENZYMES Creatine Kinase 268 IU/L (26-192) H 02/12/18 21:40 Troponin I 0.02 ng/ml (0.00-0.05) 02/12/18 21:40 CT head reviewed MRI brain reviewed Carotid doppler reviewed Echo reviewed Plan 77 year old female who resented with reported weakness and slurred speech. Per notes, she recently flew from [place] 2 days prior for the of her son in law. Night prior to admission she was "not feeling well" but did not tell anybody. She went to bed at 1:30 and woke up at 3:30 with weakness. She stated it affected her entire left side. She could not move her L arm and L leg. CT had completed an emergency department did not show any acute changes. She was admitted for stroke workup and I was asked by Dr. Payne to consult. MRI brain as above carotid Dopplers as above, no HD stenosis Echo as above Continue aspirin 81 mg daily, compliance recommended Monitor blood pressure, allow up to 140/90 for now, <130/80 as outpatient speech and swallow eval LDL 148, increased Lipitor to 40 mg from 20 mg physical therapy as tolerated, improving strength Fall precautions DVT prophylaxis recommended
[2018-02-13] MEDS: ENALAPRIL MALEATE 10 MG TABLET (FP) PO SCH (10:39)
[2018-02-13] MEDS: ASPIRIN COATED 81 MG TABLET.EC PO SCH (10:40)
[2018-02-13] MEDS: ENOXAPARIN NA (PORCINE) 40 MG/0.4 ML DISP.SYRIN SQ SCH (10:40)
--- NOTE | 2018-02-13 11:39 | PN ---
Progress Note, MEDICAL DIRECTOR - Note Progress Note: Selected Entries 02/12/18 02/12/18 02/12/18 05:44 06:11 10:24 Diet Tolerated Supper Temperature 97.7 F 98.9 F 98.2 F 02/12/18 02/12/18 02/12/18 12:00 15:23 17:00 Diet Tolerated Supper Temperature 98.2 F 98.4 F 97.6 F 02/12/18 02/12/18 02/12/18 19:00 21:50 22:00 Diet Tolerated Poor Supper 25% Temperature 98.3 F 98.3 F 02/13/18 02/13/18 02/13/18 01:24 05:00 06:00 Diet Tolerated Supper Temperature 98.1 F 97.9 F 97.9 F 02/13/18 10:36 Diet Tolerated Supper Temperature 97 F L Laboratory Tests 02/13/18 05:30 WBC 6.6 Pt on dys minced diet, nectar thick liquids. Looking much stronger. Left facial improving. Still with responsive cough on 3 oz water test, c/w aspiration. Consider MBS before d/c regarding appropriate diet to minimize aspiration risk.
--- NOTE | 2018-02-13 14:14 | PN ---
Teaching Attending Note Name of Resident: Clarisa Reid ATTENDING PHYSICIAN STATEMENT I saw and evaluated the patient. I reviewed the resident's note and discussed the case with the resident. I agree with the resident's findings and plan as documented. SUBJECTIVE: Patient has no complaints. OBJECTIVE: Vital Signs Period Temp Pulse Resp BP Sys/Mckenna Pulse Ox Last 24 Hr 97 F-98.4 F 61-74 20-20 118-192/64-113 98-98 HEART: S1S2, RRR LUNGS: Clear ABDOMEN: Soft, non-tender, non-distended, normal BS EXTREMITIES: No edema NEUROLOGICAL: Alert, oriented, mild left facial droop, strength 4/5 in LUE/LLE and 5/5 in RUE/RLE Laboratory Results - last 24 hr 02/12/18 02/12/18 02/13/18 16:30 21:40 05:30 WBC 6.6 RBC 4.48 Hgb 13.8 Hct 39.3 MCV 87.7 MCH 30.8 MCHC 35.1 RDW 14.2 Plt Count 163 MPV 10.1 Absolute Neuts (auto) 4.5 Neutrophils % 68.1 Lymphocytes % 21.4 Monocytes % 9.6 Eosinophils % 0.5 Basophils % 0.4 Nucleated RBC % 0 Sodium Potassium Chloride Carbon Dioxide Anion Gap BUN Creatinine Creat Clearance w eGFR Random Glucose Calcium Phosphorus Magnesium Total Bilirubin AST ALT Alkaline Phosphatase Creatine Kinase 257 H 268 H Creatine Kinase Index 1.7 1.6 CK-MB (CK-2) 4.5 H 4.4 H Troponin I 0.02 0.02 Total Protein Albumin 02/13/18 06:00 WBC RBC Hgb Hct MCV MCH MCHC RDW Plt Count MPV Absolute Neuts (auto) Neutrophils % Lymphocytes % Monocytes % Eosinophils % Basophils % Nucleated RBC % Sodium 139 Potassium 4.1 Chloride 106 Carbon Dioxide 23 Anion Gap 10 BUN 16 Creatinine 1.1 Creat Clearance w eGFR 48.42 Random Glucose 96 Calcium 8.8 Phosphorus 4.0 Magnesium 2.1 Total Bilirubin 0.8 AST 27 ALT 15 Alkaline Phosphatase 62 Creatine Kinase Creatine Kinase Index CK-MB (CK-2) Troponin I Total Protein 7.0 Albumin 3.5 Current Medications Generic Name Dose Route Start Last Admin Trade Name Freq PRN Reason Stop Dose Admin Acetaminophen 650 mg 02/12/18 08:06 Tylenol - PO Q4H PRN FEVER Aspirin 81 mg 02/13/18 10:00 02/13/18 10:40 Ecotrin - PO 81 mg DAILY [facility] Administration Atorvastatin Calcium 40 mg 02/12/18 22:00 02/12/18 22:01 Lipitor - PO 40 mg HS [facility] Administration Enalapril Maleate 10 mg 02/12/18 10:00 02/13/18 10:39 Vasotec - PO 10 mg DAILY [facility] Administration Enoxaparin Sodium 40 mg 02/12/18 10:00 02/13/18 10:40 Lovenox - SQ 40 mg DAILY [facility] Administration Labetalol HCl 10 mg 02/12/18 08:10 02/12/18 15:28 Normodyne Injection - IVPUSH 10 mg Q6H PRN Administration HYPERTENSION ASSESSMENT AND PLAN: This is a 77 year old woman with a history of HTN who presented to the ED with left-sided weakness, left facial droop, and slurred speech. 1. 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 HTN - Continue Vasotec - Allow permissive hypertension for now 3. Hyperlipidemia - Continue Lipitor 4. Leg edema - Improved - Venous dopplers negative for DVT in both legs
--- NOTE | 2018-02-13 16:37 | PN ---
Physical Exam: SUBJECTIVE: Patient seen and examined at bed side today. No complaints. Feels better. States still has weakness on the left side. Denies headache, numbness, tingling, any focal neurological deficits, chest pain, sob, cough, palpitation, abdominal pain,nausea or vomiting. No acute events overnight. No events in tele monitor. OBJECTIVE: Vital Signs Period Temp Pulse Resp BP Sys/Mckenna Pulse Ox Last 24 Hr 97 F-98.3 F 61-69 20-20 118-192/64-87 98-98 GENERAL: Elderly female, sitting in a chair comfortably, is awake, alert, and fully oriented, in no acute distress. HEAD: Normal with no signs of trauma. EYES: EOM intact, no pallor or icterus. ENT: Ears normal, moist mucous membranes. NECK:Supple. LUNGS: Breath sounds equal, clear to auscultation bilaterally, no wheezes, no crackles, no accessory muscle use. HEART: Regular rate and rhythm, S1, S2 without murmur. ABDOMEN: Soft, nontender, no organomegaly. EXTREMITIES: 2+ pulses, warm, well-perfused, no edema. NEUROLOGICAL: Left sided facial droop. Power 5/5 in right upper and lower ext; 4 /5 in left upper and lower ext. Cranial nerves II through XII grossly intact. Normal speech, gait not observed. PSYCH: Normal mood, normal affect. SKIN: Warm, dry, normal turgor, no rashes or lesions noted Laboratory Results - last 24 hr 02/12/18 02/12/18 02/13/18 16:30 21:40 05:30 WBC 6.6 RBC 4.48 Hgb 13.8 Hct 39.3 MCV 87.7 MCH 30.8 MCHC 35.1 RDW 14.2 Plt Count 163 MPV 10.1 Absolute Neuts (auto) 4.5 Neutrophils % 68.1 Lymphocytes % 21.4 Monocytes % 9.6 Eosinophils % 0.5 Basophils % 0.4 Nucleated RBC % 0 Sodium Potassium Chloride Carbon Dioxide Anion Gap BUN Creatinine Creat Clearance w eGFR Random Glucose Calcium Phosphorus Magnesium Total Bilirubin AST ALT Alkaline Phosphatase Creatine Kinase 257 H 268 H Creatine Kinase Index 1.7 1.6 CK-MB (CK-2) 4.5 H 4.4 H Troponin I 0.02 0.02 Total Protein Albumin 02/13/18 06:00 WBC RBC Hgb Hct MCV MCH MCHC RDW Plt Count MPV Absolute Neuts (auto) Neutrophils % Lymphocytes % Monocytes % Eosinophils % Basophils % Nucleated RBC % Sodium 139 Potassium 4.1 Chloride 106 Carbon Dioxide 23 Anion Gap 10 BUN 16 Creatinine 1.1 Creat Clearance w eGFR 48.42 Random Glucose 96 Calcium 8.8 Phosphorus 4.0 Magnesium 2.1 Total Bilirubin 0.8 AST 27 ALT 15 Alkaline Phosphatase 62 Creatine Kinase Creatine Kinase Index CK-MB (CK-2) Troponin I Total Protein 7.0 Albumin 3.5 Active Medications Generic Name Dose Route Start Last Admin Trade Name Freq PRN Reason Stop Dose Admin Acetaminophen 650 mg 02/12/18 08:06 Tylenol - PO Q4H PRN FEVER Aspirin 81 mg 02/13/18 10:00 02/13/18 10:40 Ecotrin - PO 81 mg DAILY RICH Administration Atorvastatin Calcium 40 mg 02/12/18 22:00 02/12/18 22:01 Lipitor - PO 40 mg HS RICH Administration Enalapril Maleate 10 mg 02/12/18 10:00 02/13/18 10:39 Vasotec - PO 10 mg DAILY RICH Administration Enoxaparin Sodium 40 mg 02/12/18 10:00 02/13/18 10:40 Lovenox - SQ 40 mg DAILY RICH Administration Labetalol HCl 10 mg 02/12/18 08:10 02/12/18 15:28 Normodyne Injection - IVPUSH 10 mg Q6H PRN Administration HYPERTENSION Brain MRI 02/12: Acute right basal ganglia/frontal coronal radiata infarct, small chronic left basal ganglia infarct. Carotid dopplers show mild atherosclerotic disease with no hemodynamically significant stenosis Echo shows normal LV, LVEF 60%, normal RV, trace AR, moderate eccentric MR Vascular study shows NO DVT ASSESSMENT/PLAN: Patient is a 77 year old female presented to the ED with the chief complaints of left sided weakness. # Acute right basal ganglia infarct Admitted in Tele. Continuous cardiac monitoring. no events noted in tele monitor. Carotid doppler and ECHO as mentioned above. Still has left sided weakness but no focal neurological deficits. Continue Aspirin 81mg PO Daily; Atorvastatin 40mg Physical therapy daily: walked 20 ft today Modified barium swallow done today, recommendations to follow. On Soft diet regular soft, thin liquids, no straws. # Hypertension-controlled Continue Enalapril 10mg PO daily Labetolol 10 mg IV Q6H PRN Maintain BP < 140 mmHg # FEN Not on any fluids, can tolerate PO Electrolytes WNL Soft diet # Prophylaxis For DVT: On Lovenox 40 mg sq daily For GI: not indicated # Code Status: Full Code # Dispo: d/c planning. Needs a SNF placement. mend worker on board. Illness, Investigation and Plan of care explained to the patient. She verbalized understanding. Case seen and discussed with Dr. Park. Problem List - Problems (1) Cerebrovascular accident (CVA) Code(s): I63.9 - CEREBRAL INFARCTION, UNSPECIFIED Qualifiers: CVA mechanism: unspecified Qualified Code(s): I63.9 - Cerebral infarction, unspecified (2) Edema Code(s): R60.9 - EDEMA, UNSPECIFIED Qualifiers: Edema type: localized Qualified Code(s): R60.0 - Localized edema (3) HLD (hyperlipidemia) Code(s): E78.5 - HYPERLIPIDEMIA, UNSPECIFIED (4) HTN (hypertension) Code(s): I10 - ESSENTIAL (PRIMARY) HYPERTENSION Visit type - Emergency Visit Emergency Visit: Yes ED Registration Date: 02/12/18 Care time: The patient presented to the Emergency Department on the above date and was hospitalized for further evaluation of their emergent condition. - New Patient This patient is new to me today: Yes Date on this admission: 02/13/18 - Critical Care Critical Care patient: No - Discharge Referral Referred to [facility] Med P.C.: No
[2018-02-13] MEDS: ATORVASTATIN CA 40 MG TABLET (FP) PO SCH (21:18)
--- NOTE | 2018-02-14 08:43 | PN ---
Progress Note (short form) - Note Progress Note: Neurology History of Present Illness: 77 year old female who resented with reported weakness and slurred speech. Per notes, she recently flew from [place] 2 days prior for the of her son in law. Night prior to admission she was "not feeling well" but did not tell anybody. She went to bed at 1:30 and woke up at 3:30 with weakness. She stated it affected her entire left side. She could not move her L arm and L leg. She had to use the bathroom and was being assisted, and they noted that she was unable to use her L side to walk. They also noted L sided facial droop and slight slurring of speech. Because of this they brought her in. CT had completed an emergency department did not show any acute changes. MRI brain completed overnight and demonstrated R basal ganglia/ghosh radiata infarct. Patient put on ASA 81mg. Also on statin. Carotid reviewed and without HD significant stenosis but mild athero. Normal LV function and EF. Reviewed and discussed with patient. LUE and LLE improved significantly in strength both subjectively and objectively. Continued encouragement provided again today. She seems to be getting close to baseline. Speech also seems more intelligible. No new complaints or deficits noted. Physical Examination Vital Signs: Vital Signs Period Temp Pulse Resp BP Sys/Mckenna Pulse Ox Last 24 Hr 97 F-98.4 F 57-67 20-20 90-142/45-75 98-98 Constitutional: Yes: No Distress, Calm, Thin Eyes: Yes: Conjunctiva Clear, EOM Intact, PERRL HENT: Yes: Atraumatic, Normocephalic, Other (L mouth droop) Cardiovascular: Yes: Regular Rate and Rhythm. No: Gallop, Murmur, Rub Respiratory: Yes: Regular, CTA Bilaterally. No: Rales, Rhonchi, Wheezes Gastrointestinal: Yes: Normal Bowel Sounds, Soft. No: Distention, Tenderness Extremities: Yes: WNL Edema: No Neurological: left facial droop,slurred speech, LUE 4+/5, LLE 4-/5, RUE and RLE 5-/5, sensory intact, finger to nose intact CBCD WBC 6.6 K/mm3 (4.0-10.0) 02/13/18 05:30 RBC 4.48 M/mm3 (3.60-5.2) 02/13/18 05:30 Hgb 13.8 GM/dL (10.7-15.3) 02/13/18 05:30 Hct 39.3 % (32.4-45.2) 02/13/18 05:30 MCV 87.7 fl (80-96) 02/13/18 05:30 MCHC 35.1 g/dl (32.0-36.0) 02/13/18 05:30 RDW 14.2 % (11.6-15.6) 02/13/18 05:30 Plt Count 163 K/MM3 (134-434) 02/13/18 05:30 MPV 10.1 fl (7.5-11.1) 02/13/18 05:30 CMP Sodium 139 mmol/L (136-145) 02/13/18 06:00 Potassium 4.1 mmol/L (3.5-5.1) 02/13/18 06:00 Chloride 106 mmol/L (98-107) 02/13/18 06:00 Carbon Dioxide 23 mmol/L (21-32) 02/13/18 06:00 Anion Gap 10 MMOL/L (8-16) 02/13/18 06:00 BUN 16 mg/dL (7-18) 02/13/18 06:00 Creatinine 1.1 mg/dL (0.55-1.3) 02/13/18 06:00 Creat Clearance w eGFR 48.42 (>60) 02/13/18 06:00 Random Glucose 96 mg/dL (74-106) 02/13/18 06:00 Calcium 8.8 mg/dL (8.5-10.1) 02/13/18 06:00 Total Bilirubin 0.8 mg/dL (0.2-1) 02/13/18 06:00 AST 27 U/L (15-37) 02/13/18 06:00 ALT 15 U/L (13-61) 02/13/18 06:00 Alkaline Phosphatase 62 U/L (45-117) 02/13/18 06:00 Total Protein 7.0 g/dl (6.4-8.2) 02/13/18 06:00 Albumin 3.5 g/dl (3.4-5.0) 02/13/18 06:00 CARDIAC ENZYMES Creatine Kinase 268 IU/L (26-192) H 02/12/18 21:40 Troponin I 0.02 ng/ml (0.00-0.05) 02/12/18 21:40 CT head reviewed MRI brain reviewed Carotid doppler reviewed Echo reviewed Plan 77 year old female who resented with reported weakness and slurred speech. Per notes, she recently flew from [place] 2 days prior for the of her son in law. Night prior to admission she was "not feeling well" but did not tell anybody. She went to bed at 1:30 and woke up at 3:30 with weakness. She stated it affected her entire left side. She could not move her L arm and L leg. CT had completed an emergency department did not show any acute changes. She was admitted for stroke workup and I was asked by Dr. Payne to consult. MRI brain as above carotid Dopplers as above, no HD stenosis Echo as above Continue aspirin 81 mg daily, compliance recommended Monitor blood pressure, allow up to 140/90 for now, <130/80 as outpatient speech and swallow eval LDL 148, increased Lipitor to 40 mg from 20 mg physical therapy as tolerated, improving strength, rehab may be preferred though home with outpatient PT may be feasible depending on therapist evaluation of continued improvement Fall precautions DVT prophylaxis recommended
[2018-02-14] MEDS: ENALAPRIL MALEATE 10 MG TABLET (FP) PO SCH (10:12)
[2018-02-14] MEDS: ENOXAPARIN NA (PORCINE) 40 MG/0.4 ML DISP.SYRIN SQ SCH (10:13)
[2018-02-14] MEDS: ASPIRIN COATED 81 MG TABLET.EC PO SCH (10:13)
--- NOTE | 2018-02-14 11:30 | PN ---
Progress Note, GROUP DIRECTOR - Note Progress Note: MBS reviewed with pt and staff. Diet upgraded with good tolerance noted. Left facial weakness much improved, suspecting approximating baseline. Selected Entries 02/13/18 02/13/18 02/13/18 01:24 05:00 06:00 Breakfast Lunch Supper Temperature 98.1 F 97.9 F 97.9 F 02/13/18 02/13/18 02/13/18 10:36 12:22 15:41 Breakfast 50% Lunch 50% Supper Temperature 97 F L 97.5 F L 02/13/18 02/13/18 02/13/18 17:00 19:09 23:00 Breakfast Lunch Supper 50% Temperature 97.7 F 98.4 F 02/14/18 02/14/18 01:23 05:00 Breakfast Lunch Supper Temperature 98.2 F 98 F Laboratory Tests 02/13/18 05:30 WBC 6.6 Monitor pulmonary and nutritional status.
--- NOTE | 2018-02-14 11:55 | PN ---
Teaching Attending Note Name of Resident: Clarisa Reid ATTENDING PHYSICIAN STATEMENT I saw and evaluated the patient. I reviewed the resident's note and discussed the case with the resident. I agree with the resident's findings and plan as documented. SUBJECTIVE: Patient has no complaints. OBJECTIVE: Vital Signs Period Temp Pulse Resp BP Sys/Mckenna Pulse Ox Last 24 Hr 97.5 F-98.4 F 57-67 20-20 90-134/45-75 98 HEART: S1S2, RRR LUNGS: Clear ABDOMEN: Soft, non-tender, non-distended, normal BS EXTREMITIES: No edema NEUROLOGICAL: Alert, oriented, left facial droop improving, strength 4/5 in LUE/ LLE and 5/5 in RUE/RLE Current Medications Generic Name Dose Route Start Last Admin Trade Name Freq PRN Reason Stop Dose Admin Acetaminophen 650 mg 02/12/18 08:06 Tylenol - PO Q4H PRN FEVER Aspirin 81 mg 02/13/18 10:00 02/14/18 10:13 Ecotrin - PO 81 mg DAILY RICH Administration Atorvastatin Calcium 40 mg 02/12/18 22:00 02/13/18 21:18 Lipitor - PO 40 mg HS RICH Administration Enalapril Maleate 10 mg 02/12/18 10:00 02/14/18 10:12 Vasotec - PO 10 mg DAILY RICH Administration Enoxaparin Sodium 40 mg 02/12/18 10:00 02/14/18 10:13 Lovenox - SQ 40 mg DAILY RICH Administration Labetalol HCl 10 mg 02/12/18 08:10 02/12/18 15:28 Normodyne Injection - IVPUSH 10 mg Q6H PRN Administration HYPERTENSION ASSESSMENT AND PLAN: This is a 77 year old woman with a history of HTN who presented to the ED with left-sided weakness, left facial droop, and slurred speech. 1. Acute basal ganglia/frontal ghosh radiata ischemic CVA - Carotid dopplers show mild atherosclerotic disease with no hemodynamically significant stenosis - Echo shows normal LV, LVEF 60%, normal RV, trace AR, moderate eccentric MR - Modified barium swallow shows no aspiration or penetration with slight stasis in vallecula after swallow reflex - Current recommendation is for soft regular food, thin liquids, single sips and no straws - Continue aspirin, Lipitor - Walked 40 feet with 2 wheel walker with PT today - Continue PT - Will likely need subacute rehab 2. HTN - Continue Vasotec 3. Hyperlipidemia - Continue Lipitor 4. Leg edema - Improved - Venous dopplers negative for DVT in both legs
--- NOTE | 2018-02-14 15:17 | PN ---
Physical Exam: SUBJECTIVE: Patient seen and examined at bed side this morning. Sitting in a chair. No complaints. Denies headache, numbness, tingling, any focal neurological deficits, chest pain, sob, cough, palpitation, abdominal pain, nausea or vomiting. No acute events overnight. No events in tele monitor. OBJECTIVE: Vital Signs Period Temp Pulse Resp BP Sys/Mckenna Pulse Ox Last 24 Hr 97.5 F-98.7 F 57-67 20-20 90-154/45-75 98-100 GENERAL: Elderly female, sitting in a chair comfortably, is awake, alert, and fully oriented, in no acute distress. HEAD: Normal with no signs of trauma. EYES: EOM intact, no pallor or icterus. ENT: Ears normal, moist mucous membranes. NECK:Supple. LUNGS: Breath sounds equal, clear to auscultation bilaterally, no wheezes, no crackles, no accessory muscle use. HEART: Regular rate and rhythm, S1, S2 without murmur. ABDOMEN: Soft, nontender, no organomegaly. EXTREMITIES: 2+ pulses, warm, well-perfused, no edema. NEUROLOGICAL: Left sided facial droop. Power 5/5 in right upper and lower ext; 4 /5 in left upper and lower ext. Cranial nerves II through XII grossly intact. Normal speech, gait not observed. PSYCH: Normal mood, normal affect. SKIN: Warm, dry, normal turgor, no rashes or lesions noted Active Medications Generic Name Dose Route Start Last Admin Trade Name Freq PRN Reason Stop Dose Admin Acetaminophen 650 mg 02/12/18 08:06 Tylenol - PO Q4H PRN FEVER Aspirin 81 mg 02/13/18 10:00 02/14/18 10:13 Ecotrin - PO 81 mg DAILY RICH Administration Atorvastatin Calcium 40 mg 02/12/18 22:00 02/13/18 21:18 Lipitor - PO 40 mg HS RICH Administration Enalapril Maleate 10 mg 02/12/18 10:00 02/14/18 10:12 Vasotec - PO 10 mg DAILY RICH Administration Enoxaparin Sodium 40 mg 02/12/18 10:00 02/14/18 10:13 Lovenox - SQ 40 mg DAILY RICH Administration Labetalol HCl 10 mg 02/12/18 08:10 02/12/18 15:28 Normodyne Injection - IVPUSH 10 mg Q6H PRN Administration HYPERTENSION ASSESSMENT/PLAN: Brain MRI 02/12: Acute right basal ganglia/frontal coronal radiata infarct, small chronic left basal ganglia infarct. Carotid dopplers show mild atherosclerotic disease with no hemodynamically significant stenosis Echo shows normal LV, LVEF 60%, normal RV, trace AR, moderate eccentric MR Vascular study shows NO DVT ASSESSMENT/PLAN: Patient is a 77 year old female presented to the ED with the chief complaints of left sided weakness. # Acute right basal ganglia infarct Admitted in Tele. Continuous cardiac monitoring. no events noted in tele monitor. Left sided weakness- improving Continue Aspirin 81mg PO Daily; Atorvastatin 40mg Physical therapy daily: walked 40 ft today (walked 20 ft yesterday). Needs SNF placement, patient and family agrees. On Soft diet regular soft, thin liquids, no straws. # Hypertension-controlled Continue Enalapril 10mg PO daily Labetolol 10 mg IV Q6H PRN Maintain BP < 140 mmHg # FEN Not on any fluids, can tolerate PO Electrolytes WNL Soft diet # Prophylaxis For DVT: On Lovenox 40 mg sq daily For GI: not indicated # Code Status: Full Code # Dispo: D/C planning. Needs a SNF placement. machine operator hop worker on board. Illness, Investigation and Plan of care explained to the patient. She verbalized understanding. Case seen and discussed with Dr. Park. Problem List - Problems (1) Cerebrovascular accident (CVA) Code(s): I63.9 - CEREBRAL INFARCTION, UNSPECIFIED Qualifiers: CVA mechanism: unspecified Qualified Code(s): I63.9 - Cerebral infarction, unspecified (2) Edema Code(s): R60.9 - EDEMA, UNSPECIFIED Qualifiers: Edema type: localized Qualified Code(s): R60.0 - Localized edema (3) HLD (hyperlipidemia) Code(s): E78.5 - HYPERLIPIDEMIA, UNSPECIFIED (4) HTN (hypertension) Code(s): I10 - ESSENTIAL (PRIMARY) HYPERTENSION Visit type - Emergency Visit Emergency Visit: Yes ED Registration Date: 02/12/18 Care time: The patient presented to the Emergency Department on the above date and was hospitalized for further evaluation of their emergent condition. - New Patient This patient is new to me today: No - Critical Care Critical Care patient: No - Discharge Referral Referred to [facility] Med P.C.: No
[2018-02-14] MEDS: ATORVASTATIN CA 40 MG TABLET (FP) PO SCH (21:23)
[2018-02-15 07:22] LABS: HEMATOCRIT 39.8 % (32.4-45.2); HEMOGLOBIN 13.5 GM/dL (10.7-15.3); MCH 30.2 pg (25.7-33.7); MEAN PLT VOLUME 10.1 fl (7.5-11.1); PLATELET COUNT 165 K/MM3 (134-434); RBC 4.47 M/mm3 (3.60-5.2); RDW 14.2 % (11.6-15.6); WHITE BLOOD COUNT 5.2 K/mm3 (4.0-10.0)
[2018-02-15 07:49] LABS: ANION GAP 6 MMOL/L (8-16); BLOOD UREA NITROGEN 30 mg/dL (7-18); CHLORIDE 106 mmol/L (98-107); CO2 26 mmol/L (21-32); CREATININE 1.2 mg/dL (0.55-1.3); GLUCOSE,RANDOM 85 mg/dL (74-106); POTASSIUM 4.5 mmol/L (3.5-5.1); SODIUM 138 mmol/L (136-145)
--- NOTE | 2018-02-15 09:05 | PN ---
Progress Note (short form) - Note Progress Note: Neurology History of Present Illness: 77 year old female who resented with reported weakness and slurred speech. Per notes, she recently flew from [place] 2 days prior for the of her son in law. Night prior to admission she was "not feeling well" but did not tell anybody. She went to bed at 1:30 and woke up at 3:30 with weakness. She stated it affected her entire left side. She could not move her L arm and L leg. She had to use the bathroom and was being assisted, and they noted that she was unable to use her L side to walk. They also noted L sided facial droop and slight slurring of speech. Because of this they brought her in. CT had completed an emergency department did not show any acute changes. MRI brain completed overnight and demonstrated R basal ganglia/ghosh radiata infarct. Patient put on ASA 81mg. Also on statin. Carotid reviewed and without HD significant stenosis but mild athero. Normal LV function and EF. Reviewed and discussed with patient. LUE and LLE improved significantly in strength both subjectively and objectively, reportedly walking 40 feet. Continued encouragement provided again today. She seems to be getting close to baseline. Speech also seems more intelligible. May be going to SNF per notes. Dispo being planned. Encouraged by her progress, may have good recovery with continued therapy. Active Medications Acetaminophen (Tylenol -) 650 mg PO Q4H PRN PRN Reason: FEVER Aspirin (Ecotrin -) 81 mg PO DAILY RICH Last Admin: 02/14/18 10:13 Dose: 81 mg Atorvastatin Calcium (Lipitor -) 40 mg PO HS RICH Last Admin: 02/14/18 21:23 Dose: 40 mg Enalapril Maleate (Vasotec -) 10 mg PO DAILY RICH Last Admin: 02/14/18 10:12 Dose: 10 mg Enoxaparin Sodium (Lovenox -) 40 mg SQ DAILY RICH Last Admin: 02/14/18 10:13 Dose: 40 mg Labetalol HCl (Normodyne Injection -) 10 mg IVPUSH Q6H PRN PRN Reason: HYPERTENSION Last Admin: 02/12/18 15:28 Dose: 10 mg Physical Examination Vital Signs: Vital Signs Period Temp Pulse Resp BP Sys/Mckenna Pulse Ox Last 24 Hr 97 F-98.4 F 57-67 20-20 90-142/45-75 98-98 Constitutional: Yes: No Distress, Calm, Thin Eyes: Yes: Conjunctiva Clear, EOM Intact, PERRL HENT: Yes: Atraumatic, Normocephalic, Other (L mouth droop) Cardiovascular: Yes: Regular Rate and Rhythm. No: Gallop, Murmur, Rub Respiratory: Yes: Regular, CTA Bilaterally. No: Rales, Rhonchi, Wheezes Gastrointestinal: Yes: Normal Bowel Sounds, Soft. No: Distention, Tenderness Extremities: Yes: WNL Edema: No Neurological: left facial droop,slurred speech, LUE 4+/5, LLE 4-/5, RUE and RLE 5-/5, sensory intact, finger to nose intact CBCD WBC 5.2 K/mm3 (4.0-10.0) 02/15/18 06:28 RBC 4.47 M/mm3 (3.60-5.2) 02/15/18 06:28 Hgb 13.5 GM/dL (10.7-15.3) 02/15/18 06:28 Hct 39.8 % (32.4-45.2) 02/15/18 06:28 MCV 89.0 fl (80-96) 02/15/18 06:28 MCHC 34.0 g/dl (32.0-36.0) 02/15/18 06:28 RDW 14.2 % (11.6-15.6) 02/15/18 06:28 Plt Count 165 K/MM3 (134-434) 02/15/18 06:28 MPV 10.1 fl (7.5-11.1) 02/15/18 06:28 CMP Sodium 138 mmol/L (136-145) 02/15/18 06:28 Potassium 4.5 mmol/L (3.5-5.1) 02/15/18 06:28 Chloride 106 mmol/L (98-107) 02/15/18 06:28 Carbon Dioxide 26 mmol/L (21-32) 02/15/18 06:28 Anion Gap 6 MMOL/L (8-16) L 02/15/18 06:28 BUN 30 mg/dL (7-18) H 02/15/18 06:28 Creatinine 1.2 mg/dL (0.55-1.3) 02/15/18 06:28 Creat Clearance w eGFR 43.80 (>60) 02/15/18 06:28 Random Glucose 85 mg/dL (74-106) 02/15/18 06:28 Calcium 9.0 mg/dL (8.5-10.1) 02/15/18 06:28 Total Bilirubin 0.8 mg/dL (0.2-1) 02/13/18 06:00 AST 27 U/L (15-37) 02/13/18 06:00 ALT 15 U/L (13-61) 02/13/18 06:00 Alkaline Phosphatase 62 U/L (45-117) 02/13/18 06:00 Total Protein 7.0 g/dl (6.4-8.2) 02/13/18 06:00 Albumin 3.5 g/dl (3.4-5.0) 02/13/18 06:00 CARDIAC ENZYMES Creatine Kinase 268 IU/L (26-192) H 02/12/18 21:40 Troponin I 0.02 ng/ml (0.00-0.05) 02/12/18 21:40 CT head reviewed MRI brain reviewed Carotid doppler reviewed Echo reviewed Plan 77 year old female who resented with reported weakness and slurred speech. Per notes, she recently flew from [place] 2 days prior for the of her son in law. Night prior to admission she was "not feeling well" but did not tell anybody. She went to bed at 1:30 and woke up at 3:30 with weakness. She stated it affected her entire left side. She could not move her L arm and L leg. CT had completed an emergency department did not show any acute changes. She was admitted for stroke workup and I was asked by Dr. Payne to consult. MRI brain as above carotid Dopplers as above, no HD stenosis Echo as above Continue aspirin 81 mg daily, compliance recommended Monitor blood pressure, allow up to 140/90 for now, <130/80 as outpatient speech and swallow eval LDL 148, increased Lipitor to 40 mg from 20 mg physical therapy as tolerated, improving strength, dispo planning per case mgmt Continued encouragement for activity Fall precautions DVT prophylaxis recommended
[2018-02-15] MEDS: ASPIRIN COATED 81 MG TABLET.EC PO SCH (10:51)
[2018-02-15] MEDS: ENOXAPARIN NA (PORCINE) 40 MG/0.4 ML DISP.SYRIN SQ SCH (10:51)
[2018-02-15] MEDS: ENALAPRIL MALEATE 10 MG TABLET (FP) PO SCH (10:51)
[2018-02-15 14:22] VITALS: BP 139/67; PULSE 64; TEMP 98.7
--- NOTE | 2018-02-15 14:33 | DS ---
Physical Exam: SUBJECTIVE: Patient seen and examined at bed side this morning. Sitting in a chair. No complaints. Denies headache, numbness, tingling, any focal neurological deficits, chest pain, sob, cough, palpitation, abdominal pain, nausea or vomiting. No acute events overnight. No events in tele monitor. OBJECTIVE: Vital Signs Period Temp Pulse Resp BP Sys/Mckenna Pulse Ox Last 24 Hr 97.4 F-98.7 F 51-64 18-20 100-139/54-68 98-98 PHYSICAL EXAM GENERAL: Elderly female, sitting in a chair comfortably, is awake, alert, and fully oriented, in no acute distress. HEAD: Normal with no signs of trauma. EYES: EOM intact, no pallor or icterus. ENT: Ears normal, moist mucous membranes. NECK:Supple. LUNGS: Breath sounds equal, clear to auscultation bilaterally, no wheezes, no crackles, no accessory muscle use. HEART: Regular rate and rhythm, S1, S2 without murmur. ABDOMEN: Soft, nontender, no organomegaly. EXTREMITIES: 2+ pulses, warm, well-perfused, no edema. NEUROLOGICAL: Left sided facial droop. Power 5/5 in right upper and lower ext; 4 /5 in left upper and lower ext. Cranial nerves II through XII grossly intact. Normal speech, gait not observed. PSYCH: Normal mood, normal affect. SKIN: Warm, dry, normal turgor, no rashes or lesions noted LABS Laboratory Results - last 24 hr 02/15/18 02/15/18 06:28 06:28 WBC 5.2 RBC 4.47 Hgb 13.5 Hct 39.8 MCV 89.0 MCH 30.2 MCHC 34.0 RDW 14.2 Plt Count 165 MPV 10.1 Sodium 138 Potassium 4.5 Chloride 106 Carbon Dioxide 26 Anion Gap 6 L BUN 30 H Creatinine 1.2 Creat Clearance w eGFR 43.80 Random Glucose 85 Calcium 9.0 HOSPITAL COURSE: Date of Admission:02/12/18 Date of Discharge: 02/15/18 Brain MRI 02/12: Acute right basal ganglia/frontal coronal radiata infarct, small chronic left basal ganglia infarct. Carotid dopplers show mild atherosclerotic disease with no hemodynamically significant stenosis Echo shows normal LV, LVEF 60%, normal RV, trace AR, moderate eccentric MR Vascular study shows NO DVT ASSESSMENT/PLAN: Patient is a 77 year old female presented to the ED with the chief complaints of left sided weakness. Head CT was done which showed Acute right basal ganglia infarct. Patient had left sided weakness but no other focal neurological deficits. tPA not given since she was out of the tPA window. Treated with Aspirin, Atorvastain. Evaluated by Neurology. Swallow eval done with barium swallow and soft diet, thin liquids no straws was recommended to avoid aspirations. Hospital course was uncomplicated. No events on tele monitor. Walked 40 ft with physical therapy. Sending the patient to a short term rehab. Hypertension-controlled with Enalapril 10mg PO daily Plan of care explained to the patient. She verbalized understanding. Minutes to complete discharge: 45 Discharge Summary Reason For Visit: CVA Current Active Problems Cerebrovascular accident (CVA) (Acute) Edema (Acute) HLD (hyperlipidemia) (Acute) HTN (hypertension) (Acute) Condition: Guarded - Instructions Diet, Activity, Other Instructions: You were admitted for the treatment of stroke. Hospital course were uncomplicated. Since you are still weak on the left side, we are sending you to a short term rehab where physical therapy will be done helping you to be stronger. Please make sure you take soft diet only, thin liquids, no straws to avoid aspiration. Please make sure you f/up with Neurology (Dr. Santizo) after you get discharged from the rehab. We will send a list of medications you need to take at the rehab. If your symptoms worsen or if you develop any new symptoms, please call 911 immediately and come to the Emergency Department. Referrals: Kenneth Santizo MD [Staff Physician] - 2 Weeks Disposition: RESIDENTIAL FACILITY - Home Medications Comprehensive Discharge Medication List: Ambulatory Orders Enalapril Maleate [Vasotec] 10 mg PO DAILY 02/12/18 Aspirin Coated [Ecotrin -] 81 mg PO DAILY tablet.ec 02/15/18 Atorvastatin Ca [Lipitor] 40 mg PO HS tablet 02/15/18 Problem List - Problems (1) Cerebrovascular accident (CVA) Code(s): I63.9 - CEREBRAL INFARCTION, UNSPECIFIED Qualifiers: CVA mechanism: unspecified Qualified Code(s): I63.9 - Cerebral infarction, unspecified (2) Edema Code(s): R60.9 - EDEMA, UNSPECIFIED Qualifiers: Edema type: localized Qualified Code(s): R60.0 - Localized edema (3) HLD (hyperlipidemia) Code(s): E78.5 - HYPERLIPIDEMIA, UNSPECIFIED (4) HTN (hypertension) Code(s): I10 - ESSENTIAL (PRIMARY) HYPERTENSION This patient is new to me today: No Emergency Visit: Yes ED Registration Date: 02/12/18 Care time: The patient presented to the Emergency Department on the above date and was hospitalized for further evaluation of their emergent condition. Critical Care patient: No - Discharge Referral Referred to [facility] Med P.C.: No
== END 2018-02-15 17:00 | DRG 65 ==
LOC: JER 05:44 → JERBED 07:26 → J4W 10:54
PROVIDERS: ADMIT Internal Medicine; ATTEND Internal Medicine
DX: I63.89 Other cerebral infarction (principal); G81.94 Hemiplegia, unspecified affecting left nondominant side; R47.81 Slurred speech; R29.810 Facial weakness; E78.5 Hyperlipidemia, unspecified; I10 Essential (primary) hypertension
CPT/HCPCS: 36415; 70450-TC; 70551-TC; 71045-TC-FY; 74230-TC-FY; 80048; 80053; 81003; 81015; 82465; 82550; 82553; 83718; 83721; 83735; 84100; 84478; 84484; 85025; 85027; 85379; 85610; 86850; 86900; 86901; 92611-GN; 93005; 93010; 93306-TC; 93880-TC; 93970-TC; 97116-GP; 97162-GP; 99283-25; J7030

== ENCOUNTER 2020-08-11 09:59 | Emergency (ER) | payer OTHER ==
[2020-08-12 13:11] LABS: SARS-CoV-2 NAA Not Detected (Not Detected)
== END 2020-08-11 12:20 | disposition home or self-care (01) ==
LOC: JVIRT 09:59
DX: Z20.822 Contact with and (suspected) exposure to COVID-19 (principal)
CPT/HCPCS: C9803; Q3014-GT; U0003; U0005